=== PATIENT | male | born 1950 | race Hispanic/Latino ===

== ENCOUNTER → 2017-12-06 | Day surgery (SDC) | payer MEDICARE, OTHER ==
[2017-11-21 14:01] LABS: BASOPHILS % 0.4 % (0.0-1.0); EOSINOPHILS # (AUTO) 0.1 (0.0-0.4); HEMATOCRIT 45.9 % (38.2-49.6); HEMOGLOBIN 14.7 g/dL (14.0-18.0); LYMPHOCYTES # (AUTO) 1.2 (1.0-3.2); MEAN CORPUSCULAR HEMOGLOBIN 29.9 pg (28-32); MEAN CORPUSCULAR VOLUME 93.3 fL (81-99); MONOCYTES # (AUTO) 0.6 (0.2-0.8); MONOCYTES % 7.7 % (4.4-11.3); NEUTROPHILS # (AUTO) 5.4 (2.1-6.9); NEUTROPHILS % 73.4 % (38.7-80.0); PLATELET COUNT 184 x10e3/uL (140-360); RED BLOOD COUNT 4.92 x10e6/uL (4.3-5.7); RED CELL DISTRIBUTION WIDTH 13.7 % (11.7-14.4)
[2017-11-21 14:18] LABS: BLOOD UREA NITROGEN 22 mg/dL (7-26); BUN/CREATININE RATIO 27 (6-25); CALCIUM 9.6 mg/dL (8.4-10.2); CARBON DIOXIDE 25 mmol/L (22-29); CHLORIDE 106 mmol/L (98-107); CREATININE, SERUM 0.81 mg/dL (0.72-1.25); EST GLOMERULAR FILTRATION RATE > 60 ML/MIN (60-); GLUCOSE 92 mg/dL (74-118); SODIUM 142 mmol/L (136-145)
[~2017-12-06] MED LIST: ATORVASTATIN CA20 MG PO; BUPIVACAINE HC 0.75% PF 10ML VIAL INJ ONE; CALCIUM; CHONDR SU A NA/HYALUR SOD 1 EACH KIT IO ONE; CYCLOPENTOLATE HCL 2% OPTH SOLN 2 ML BTL OP ONE; EPINEPHRINE HCL INJ 1 MG/ML AMP ONE; FOLIC ACID1 MG PO; GATIFLOXACIN(OPTH) 5 ML LIQD ONE; IRON; LACTATED RINGER'S 1,000 ML ONE; LEVOTHYROXINE50 MCG PO; LIDOCAINE 2% /EPINEPHRINE 20 ML SDV INJ ONE; LIDOCAINE HCL 2% LOCAL INJ 5 ML SDV VIAL INJ ONE; LIDOCAINE HCL-PF 4% 40 MG/1 ML 5ML AMP ONE; MIDAZOLAM HCL 2 MG/2 ML VIAL ONE; MYCOPHENOLATE250 MG PO; PHENYLEPHRINE HCL 2 ML DROPS ONE; PILOCARPINE HCL(OPTH) 15 ML LIQD ONE; PLAQUENIL200 MG PO; POVIDONE IODINE 5% (OPTH) 30 ML BTL ONE; PROPOFOL IV EMULSION 10 MG/ML 20 ML VIAL ONE; TOBRAMYCIN/DEXAMETHASONE(OPTH) 3.5 GM TUBE ONE; VITAMIN C1000 MG; VITAMIN C60 MG; VITAMIN D1000 UNI1 PO
== END | disposition home or self-care (01) ==
LOC: OR 06:17
PROVIDERS: ATTEND Ophthalmology
DX: H25.11 Age-related nuclear cataract, right eye (principal); E03.9 Hypothyroidism, unspecified; E78.00 Pure hypercholesterolemia, unspecified; Z01.810 Encounter for preprocedural cardiovascular examination; Z01.812 Encounter for preprocedural laboratory examination
CPT/HCPCS: 36415; 66984; 80048; 85025; 93005; J0171; J2001 ×2; J2250; J7120